=== PATIENT | female | born 1945 | race Caucasian/White ===

== ENCOUNTER 2022-05-17 15:19 | Emergency (ER) | payer MEDICARE ==
[~2022-05-17] VITALS: Ht 162.6 cm; Wt 75.3 kg
[2022-05-17] MEDS ORDERED: ONDANSETRON 4MG INJ IVP ONE (16:00)
[2022-05-17] MEDS ORDERED: 0.9%NACL 1000ML 2,000 ML IV ONE (16:30)
[2022-05-17 16:43] LABS: BASOPHILS % (AUTO) 0.6 % (0.0-5.0); EOSINOPHILS % (AUTO) 0.1 % (0.0-8.0); HEMATOCRIT 43.1 % (36-48); LYMPHOCYTES % (AUTO) 18.6 % (21.0-51.0); MEAN CORPUSCULAR HEMOGLOBIN 26.1 pg (27.0-33.0); MEAN CORPUSCULAR HGB CONC 32.5 g/dL (32.0-36.0); MEAN CORPUSCULAR VOLUME 80.3 fL (79-99); MONOCYTES % (AUTO) 6.4 % (3.0-13.0); NEUTROPHILS % (AUTO) 70.4 % (40.0-77.0); PLATELET COUNT (AUTO) 359 K/uL (130-400); RED BLOOD CELL COUNT(AUTO) 5.37 MIL/uL (4.00-5.50); RED CELL DISTRIBUTION WIDTH 14.2 % (11.0-15.5); WHITE BLOOD COUNT (AUTO) 12.7 K/uL (4.8-10.8)
[2022-05-17 16:52] LABS: INR 0.93 (0.85-1.15); PROTHROMBIN TIME 9.9 SEC (9.6-11.6)
[2022-05-17 16:54] LABS: PARTIAL THROMBOPLASTIN TIME 23.7 SEC (26.3-35.5)
[2022-05-17 16:56] LABS: CREATININE 0.9 mg/dL (0.5-1.5); POTASSIUM 3.9 mmol/L (3.5-5.1)
[2022-05-17 17:04] LABS: ALBUMIN 3.3 g/dL (3.5-5.0); TOTAL PROTEIN, SERUM 8.2 g/dL (6.0-8.3)
[2022-05-17 17:43] VITALS: BP 124/72
[2022-05-17] MEDS ORDERED: ONDA-104 PO (18:16)
[2022-05-17] MEDS ORDERED: OMEP20TA2 PO (18:16)
== END 2022-05-17 18:40 | disposition home or self-care (01) ==
LOC: EDH 15:19
DX: R11.10 Vomiting, unspecified (principal); E86.0 Dehydration; I10 Essential (primary) hypertension; K21.9 Gastro-esophageal reflux disease without esophagitis; E78.00 Pure hypercholesterolemia, unspecified; Z90.49 Acquired absence of other specified parts of digestive tract
CPT/HCPCS: 99284; 96374; 96361; 84484; 80053; 85025; 85610; 85730; 36415; 93005; J7030; J2405